=== PATIENT | male | born 1995 | race Hispanic/Latino ===

== ENCOUNTER 2018-10-26 16:23 | Emergency (ER) | payer OTHER ==
[~2018-10-26] VITALS: Ht 154.9 cm; Wt 55.0 kg
[2018-10-26] MEDS ORDERED: BENADRYL 50MG C50 MG PO (16:48)
[2018-10-26] MEDS ORDERED: PEPCID20 MG PO (16:48)
[2018-10-26] MEDS ORDERED: MEDDOSEPAK PO (16:48)
[2018-10-26] MEDS ORDERED: BENADRY2 EX (16:48)
[2018-10-26 16:55] VITALS: BP 135/79
== END 2018-10-26 16:55 | disposition home or self-care (01) | DRG 918 ==
LOC: ED 16:23
DX: T65.91XA Toxic effect of unspecified substance, accidental (unintentional), initial encounter (principal); L24.89 Irritant contact dermatitis due to other agents; L24.5 Irritant contact dermatitis due to other chemical products; Y92.89 Other specified places as the place of occurrence of the external cause; Y99.0 Civilian activity done for income or pay